=== PATIENT | male | born 1970 | race Caucasian/White ===

== ENCOUNTER 2017-11-25 16:04 | Emergency (ER) | payer BC, OTHER ==
[~2017-11-25] VITALS: Ht 177.8 cm; Wt 88.5 kg
[~2017-11-25 16:04] MED LIST: ASPIR-TRIN325 MG PO; CENTRUM SILVER1 EAC2 PO; FENOFIBRATE145 M1 PO; HYDROCODONE-AP1 EAC6 PO
[2017-11-25] MEDS ORDERED: NORFLEX100 MG PO (18:27)
[2017-11-25] MEDS ORDERED: VICODIN ES 7.51 EACH PO (18:27)
[2017-11-25 18:44] VITALS: BP 126/76
== END 2017-11-25 19:06 | disposition home or self-care (01) ==
LOC: ER 16:04
DX: G62.9 Polyneuropathy, unspecified (principal); M79.1 Myalgia; G43.909 Migraine, unspecified, not intractable, without status migrainosus